=== PATIENT | male | born 1995 | race Caucasian/White ===

== ENCOUNTER 2020-03-19 13:48 | Emergency (ER) | payer MEDICAID ==
[~2020-03-19] VITALS: Ht 182.9 cm; Wt 136.1 kg
[2020-03-19 14:01] VITALS: BP 140/87
--- NOTE | 2020-03-19 14:06 | NUR ---
WAIT AT LOBBY.
--- NOTE | 2020-03-19 14:40 | NUR ---
PATIENT AMBULATED TO BED 12.
--- NOTE | 2020-03-19 15:33 | NUR ---
Patient discharged with v/s stable. Written and verbal after care instructions given and explained. Patient alert, oriented and verbalized understanding of instructions. Ambulatory with steady gait. All questions addressed prior to discharge. ID band removed. Patient advised to follow up with PMD. Rx of IBUPROFEN, DOXYCYCLINE, AND MUPIROCIN given. Patient educated on indication of medication including possible reaction and side effects. Opportunity to ask questions provided and answered.
--- NOTE | 2020-03-19 15:33 | NUR ---
PT SEEN AND D/C BY GODWIN ROBERTS. NO NURSING CARE PROVIDED.
[2020-03-19 15:35] VITALS: BP 140/84
== END 2020-03-19 15:33 | disposition home or self-care (01) ==
LOC: MED 13:48
DX: R21 Rash and other nonspecific skin eruption (principal)
CPT/HCPCS: 99283